=== PATIENT | male | born 1955 | race Caucasian/White ===

== ENCOUNTER 2017-05-26 13:12 | Emergency (ER) | payer MEDICARE, OTHER ==
[~2017-05-26] VITALS: Ht 180.3 cm; Wt 92.0 kg
[~2017-05-26 13:12] MED LIST: ALPR0.5T99 PO; ASPI81 PO; AUGM875 PO; CLOP75 PO; FISHOIL PO; GLUCTAB OR; LORTA5 PO; LORTS PO; METO25 PO; ROSU40 PO; SOMA350T PO; TAMS0.4C67 PO; TRIL135C PO; TYLE3 PO; VIAG50TA PO; VITA400C70 PO
[2017-05-26 13:22] VITALS: BP 141/82; PULSE 72; RESP 16; TEMP 98.2; O2SAT 97
[2017-05-26] MEDS ORDERED: SODIUM CHLORIDE 0.9% FLUSH 10 ML FLUSH IVF PRN (13:30)
[2017-05-26 13:38] VITALS: BP 141/82; PULSE 72; RESP 18; O2SAT 98
--- NOTE | 2017-05-26 14:04 | RADRPT ---
EXAM DATE/TIME: 05/26/2017 13:35 [facility] COMPARISON: No previous studies available for comparison. INDICATIONS : Patient states shortness of breath. MEDICAL HISTORY : Hypertension. SURGICAL HISTORY : None. ENCOUNTER: Initial ACUITY: 1 day PAIN SCORE: 0/10 LOCATION: Bilateral chest FINDINGS: A single AP erect portable view of the chest was obtained and demonstrates abnormal prominence in the region of the aortic knob which is indistinct in appearance. The right lung and lung bases are clear . The heart size is within normal limits. The bony thorax is unremarkable. Overlying electrocard ogra m leads and oxygen tubing are present. CONCLUSION: Abnormal indistinct prominence in the region of the aortic knob of unclear significan ce. This could represent adjacent infiltrate and/or mass. A chest CT with contrast is recommended for further evaluation. Cisco Krishnamurthy MD on May 26, 2017 at 14:00 Board Certified Radiologist. This report was verified electronically.
[2017-05-26 14:12] LABS: AUTOMATED NEUTROPHIL # 4.3 TH/MM3 (1.8-7.7); BASOPHIL % 0.7 % (0.0-2.0); EOSINOPHIL # 0.2 TH/MM3 (0-0.4); EOSINOPHIL % 3.3 % (0.0-4.0); HEMATOCRIT 41.7 % (39.0-51.0); HEMOGLOBIN 13.9 GM/DL (13.0-17.0); LYMPH % 24.2 % (9.0-44.0); LYMPHOCYTE # 1.6 TH/MM3 (1.0-4.8); MEAN CELL VOLUME 93.4 FL (80.0-100.0); MEAN CORPUSCULAR HEMOGLOBIN 31.1 PG (27.0-34.0); MEAN CORPUSCULAR HGB CONC 33.3 % (32.0-36.0); MONO % 7.6 % (0.0-8.0); MONOCYTE # 0.5 TH/MM3 (0-0.9); NEUT % 64.2 % (16.0-70.0); PLATELET COUNT 167 TH/MM3 (150-450); RED BLOOD COUNT 4.47 MIL/MM3 (4.50-5.90); RED CELL DISTRIBUTION WIDTH 13.7 % (11.6-17.2); WHITE BLOOD COUNT 6.7 TH/MM3 (4.0-11.0)
[2017-05-26 14:20] LABS: INTERNATIONAL NORMALIZED RATIO 1.1 RATIO; PROTHROMBIN TIME - PATIENT 10.7 SEC (9.8-11.6)
[2017-05-26 14:25] LABS: ALT (GPT) 41 U/L (12-78)
[2017-05-26 14:28] LABS: ALBUMIN 3.7 GM/DL (3.4-5.0); AST (GOT) 30 U/L (15-37); BICARBONATE 24.8 MEQ/L (21.0-32.0); BLOOD UREA NITROGEN 19 MG/DL (7-18); CALCIUM 8.5 MG/DL (8.5-10.1); CHLORIDE 109 MEQ/L (98-107); CREATININE 1.16 MG/DL (0.60-1.30); GLOMERULAR FILTRATION RATE 64 ML/MIN (>89); GLUCOSE,RANDOM 131 MG/DL (74-106); SODIUM (NA) 140 MEQ/L (136-145)
[2017-05-26 14:41] LABS: ALKALINE PHOSPHATASE 57 U/L (45-117); TOTAL BILIRUBIN ADULT 0.3 MG/DL (0.2-1.0); TOTAL PROTEIN 6.9 GM/DL (6.4-8.2); TROPONIN I LESS THAN 0.02 NG/ML (0.02-0.05)
[2017-05-26] MEDS ORDERED: MORPHINE SULFATE 4 MG/ML INJ IV PUSH ONE (15:15)
[2017-05-26] MEDS ORDERED: PLAV75TA29 PO (15:23)
[2017-05-26] MEDS ORDERED: MONT10TA2 PO (15:23)
[2017-05-26] MEDS ORDERED: ZOLO50TA PO (15:23)
[2017-05-26] MEDS ORDERED: MOBI15TA PO (15:23)
[2017-05-26] MEDS ORDERED: VENTAER INH (15:23)
[2017-05-26] MEDS ORDERED: VITA500012 PO (15:23)
[2017-05-26] MEDS ORDERED: ADVA250A INH (15:23)
[2017-05-26] MEDS ORDERED: OMEG1CAP53 PO (15:23)
[2017-05-26] MEDS ORDERED: ASPI81TA16 PO (15:23)
[2017-05-26] MEDS ORDERED: COEN400C2 PO (15:23)
[2017-05-26] MEDS ORDERED: SOMA350T PO (15:23)
[2017-05-26] MEDS ORDERED: METF1000 PO (15:23)
[2017-05-26] MEDS ORDERED: TAMS5CAP PO (15:23)
[2017-05-26] MEDS ORDERED: METO-338 PO (15:23)
[2017-05-26] MEDS ORDERED: NITR0.4S SL (15:23)
[2017-05-26] MEDS ORDERED: HYDR-3583 PO (15:23)
[2017-05-26] MEDS ORDERED: TOPI25 PO ×2 (15:23)
[2017-05-26] MEDS ORDERED: LOSA50TA PO (15:23)
[2017-05-26] MEDS ORDERED: XANA1TAB2 PO (15:23)
[2017-05-26] MEDS ORDERED: ROSU40 PO (15:23)
[2017-05-26] MEDS ORDERED: STOMACH MED (15:24)
[2017-05-26] MEDS ORDERED: IOHEXOL 350 MG/ML 10 ML VIAL (for RAD DIAG) IVCONTRAST ONE (16:23)
--- NOTE | 2017-05-26 16:43 | RADRPT ---
EXAM DATE/TIME: 05/26/2017 16:17 [facility] COMPARISON: CHEST SINGLE AP, May 26, 2017, 13:35. INDICATIONS : Abnormal chest x-ray. Evaluate for mass. IV CONTRAST: 50 cc Omnipaque 350 (iohexol) IV RADIATION DOSE: 14.73 CTDIvol (mGy) MEDICAL HISTORY : Cardiovascular disease. Hypertension. Diabetes mellitus type 2. SURGICAL HISTORY : None. ENCOUNTER: Initial ACUITY: 1 day PAIN SCALE: 7/10 LOCATION: chest TECHNIQUE: Volumetric scanning of the chest was performed. Using automated exposure control and adjustment of t he mA and/or kV according to patient size, radiation dose was kept as low as reasonably achievable to obtain optimal diagnostic quality images. DICOM format image data is available electronically for review and comparison. Follow-up recommendations for detected pulmonary nodules are based at a minimum on nodule size and pa tient risk factors according to Fleischner Society Guidelines. FINDINGS: LUNGS: There is no pneumothorax. There is atelectasis or scarring along the lung apices and superior left me diastinum in the region of the aortic arch and the period is non-masslike in configuration. Scarring is noted along the fissures as well. No concerning pulmonary nodule is visualized. There is mild scar ring and pleural-parenchymal change of the right posterior lung base. PLEURA: There is no pleural thickening or pleural effusion. MEDIASTINUM: The heart and great vessels demonstrate no acute abnormality. There is no mediastinal or hilar lymph adenopathy. AXILLAE: Within normal limits. No lymphadenopathy. SKELETAL: Within normal limits for patient age. MISCELLANEOUS: The visualized upper abdominal organs demonstrate no acute abnormality. There is a complex cystic les ion in the right lobe of the liver measuring up to 2 cm in diameter. There calcifications along the m argins. CONCLUSION: 1. Chronic scarring and pleural-parenchymal change around the aortic arch which accounts for the appe arance on the plain film exam. There is no tumor mass. 2. Complex cystic lesion in the right lobe of the liver represent a seroma and/or hematoma. 3. There are additional areas of scarring along the fissures and posterior right pleura. Cisco Krishnamurthy MD on May 26, 2017 at 16:34 Board Certified Radiologist. This report was verified electronically.
[2017-05-26] MEDS ORDERED: oxyCODONE/ACETAMINOPHEN 5 MG/325 MG TAB PO ONE (17:30)
[2017-05-26 17:59] VITALS: BP 136/69; PULSE 68; RESP 18; O2SAT 98
--- NOTE | 2017-05-26 18:19 | PD ---
HPI Chief Complaint: Cardiac Complaint Time Seen by Provider: 13:22 Travel History International Travel<30 days: No Contact w/Intl Traveler<30days: No Traveled to known affect area: No History of Present Illness HPI Patient is a 61-year-old male who comes in from a same day surgery Center where apparently his pulse dropped and CPR was performed. Patient says he was feeling fine prior to going in for his prostate procedure today. Per the documents sent by the facility, patient had a pulse dropped into the 40s and CPR was done to "encourage perfusion." Patient was given atropine. He is awake , alert, in no distress on arrival. His only complaint currently is of pain to his penis where the surgery was performed. He denies any chest pain, shortness of breath. Severity is mild to moderate. PFSH Past Medical History Hx Anticoagulant Therapy: Yes Cancer: No Cardiovascular Problems: Yes Diabetes: Yes (BOARDERLINE ) Patient Takes Glucophage: Yes Hepatitis: No Hiatal Hernia: No Hypertension: Yes Medical other: Yes (reflux) Respiratory: Yes (questionable asthma) Myocardial Infarction: Yes (NM X 2 ) Thyroid Disease: No Past Surgical History Cardiac Surgery: Yes (x 5 cardiac stents) Other Surgery: Yes Social History Alcohol Use: Yes (RARE ) Tobacco Use: No Substance Use: No Allergies-Medications (Allergen,Severity, Reaction): Coded Allergies: tramadol (Verified Allergy, Severe, pt said it makes him unable to pee, ) No Known Allergies (Unverified Adverse Reaction, Unknown, 05/26/17) Reported Meds & Prescriptions Reported Meds & Active Scripts Active Reported [Stomach Med] Advair Diskus Inh (Fluticasone-Salmeterol Inh) 250-50 Mcg/Blist Aer 1 Puff INH BID Rinse mouth after use. Ventolin Hfa 18 GM Inh (Albuterol Sulfate) 90 Mcg/Act Aer 2 Puff INH Q6H PRN Aspirin Adult Low Strength (Aspirin) 81 Mg Tabdr 81 Mg PO BID Lopressor (Metoprolol Tartrate) 100 Mg Tab 100 Mg PO BID Nitrostat SL (Nitroglycerin) 0.4 Mg Subl 0.4 Mg SL DIRECTED PRN 1 tablet under the tongue as needed for chest pain. Repeat every 5 minutes for a total of 3 DOSES or call 911 if NO relief. Soma (Carisoprodol) 350 Mg Tab 350 Mg PO Q8HR Plavix (Clopidogrel Bisulfate) 75 Mg Tab 75 Mg PO DAILY Crestor (Rosuvastatin Calcium) 40 Mg Tab 40 Mg PO DAILY Zoloft (Sertraline HCl) 50 Mg Tab 50 Mg PO DAILY Flomax (Tamsulosin HCl) 0.4 Mg Cap 0.4 Mg PO HS Hydrocodone-Acetamin 10-325 mg (Hydrocodone/Acetaminophen) 10 Mg-325 Mg Tablet 1 Tab PO Q6-8HR PRN Losartan (Losartan Potassium) 50 Mg Tab 50 Mg PO DAILY Metformin (Metformin HCl) 1,000 Mg Tab 1,000 Mg PO BID Mobic (Meloxicam) 15 Mg Tab 15 Mg PO DAILY Singulair (Montelukast Sodium) 10 Mg Tab 10 Mg PO HS Topamax (Topiramate) 25 Mg Tab 50 Mg PO HS Topamax (Topiramate) 25 Mg Tab 25 Mg PO DAILY IN THE AM Xanax (Alprazolam) 1 Mg Tab 1 Mg PO TID Co Q-10 (Coenzyme Q10 (Ubidecarenone)) 400 Mg Cap 400 Mg PO DAILY Ergocalciferol 50,000 Unit Cap 100,000 Units PO Q7D Lovaza (Mrxxt-4-Lfpj Ethyl Esters) 1 Gm Cap 4 Gm PO DAILY Review of Systems Except as stated in HPI: all other systems reviewed are Neg General / Constitutional: No: Fever, Chills HENT: No: Headaches, Lightheadedness Cardiovascular: No: Chest Pain or Discomfort Respiratory: No: Shortness of Breath Gastrointestinal: No: Nausea, Vomiting Musculoskeletal: No: Myalgias, Edema Skin: No Rash, No Change in Pigmentation Neurologic: No: Weakness, Dizziness Physical Exam Narrative GENERAL: Awake and alert, in no acute distress. SKIN: Focused skin assessment warm/dry. No wounds or bruising. HEAD: Atraumatic. Normocephalic. EYES: Pupils equal and round. No scleral icterus. ENT: No nasal bleeding or discharge. Mucous membranes pink and moist. NECK: Trachea midline. No JVD. CARDIOVASCULAR: Regular rate and rhythm. No murmur appreciated. RESPIRATORY: No accessory muscle use. Clear to auscultation. Breath sounds equal bilaterally. GASTROINTESTINAL: Abdomen soft, non-tender, nondistended. MUSCULOSKELETAL: No obvious deformities. No clubbing. No cyanosis. No edema. NEUROLOGICAL: Awake and alert. No obvious cranial nerve deficits. Motor grossly within normal limits. Normal speech. PSYCHIATRIC: Appropriate mood and affect; insight and judgment normal. Data Data Last Documented VS Vital Signs Date Time Temp Pulse Resp B/P (MAP) Pulse Ox O2 Delivery O2 Flow Rate FiO2 05/26/17 17:59 68 18 136/69 (91) 98 Room Air 05/26/17 13:22 98.2 Orders Orders Electrocardiogram (05/26/17 13:23) Ckmb (Isoenzyme) Profile (05/26/17 13:23) Complete Blood Count With Diff (05/26/17 13:23) Comprehensive Metabolic Panel (05/26/17 13:23) Prothrombin Time / Inr (Pt) (05/26/17 13:23) Act Partial Throm Time (Ptt) (05/26/17 13:23) Troponin I (05/26/17 13:23) Chest, Single Ap (05/26/17 13:23) Ecg Monitoring (05/26/17 13:23) Bilateral Bp Monitoring (05/26/17 13:23) Iv Access Insert/Monitor (05/26/17 13:23) Oximetry (05/26/17 13:23) Oxygen Administration (05/26/17 13:23) Sodium Chloride 0.9% Flush (Ns Flush) (05/26/17 13:30) CKMB (05/26/17 13:55) CKMB% (05/26/17 13:55) Ct Thorax/ Chest W Iv Contrast (05/26/17 ) Morphine Inj (Morphine Inj) (05/26/17 15:15) Iohexol 350 Inj (Omnipaque 350 Inj) (05/26/17 16:23) Troponin I (05/26/17 16:49) Oxycodone-Acetamin 5-325 Mg (Percocet (05/26/17 17:30) Labs Laboratory Tests Test 05/26/17 13:55 05/26/17 17:43 White Blood Count 6.7 TH/MM3 Red Blood Count 4.47 MIL/MM3 Hemoglobin 13.9 GM/DL Hematocrit 41.7 % Mean Corpuscular Volume 93.4 FL Mean Corpuscular Hemoglobin 31.1 PG Mean Corpuscular Hemoglobin Concent 33.3 % Red Cell Distribution Width 13.7 % Platelet Count 167 TH/MM3 Mean Platelet Volume 8.0 FL Neutrophils (%) (Auto) 64.2 % Lymphocytes (%) (Auto) 24.2 % Monocytes (%) (Auto) 7.6 % Eosinophils (%) (Auto) 3.3 % Basophils (%) (Auto) 0.7 % Neutrophils # (Auto) 4.3 TH/MM3 Lymphocytes # (Auto) 1.6 TH/MM3 Monocytes # (Auto) 0.5 TH/MM3 Eosinophils # (Auto) 0.2 TH/MM3 Basophils # (Auto) 0.0 TH/MM3 CBC Comment DIFF FINAL Differential Comment Prothrombin Time 10.7 SEC Prothromb Time International Ratio 1.1 RATIO Activated Partial Thromboplast Time 24.0 SEC Blood Urea Nitrogen 19 MG/DL Creatinine 1.16 MG/DL Random Glucose 131 MG/DL Total Protein 6.9 GM/DL Albumin 3.7 GM/DL Calcium Level 8.5 MG/DL Alkaline Phosphatase 57 U/L Aspartate Amino Transf (AST/SGOT) 30 U/L Alanine Aminotransferase (ALT/SGPT) 41 U/L Total Bilirubin 0.3 MG/DL Sodium Level 140 MEQ/L Potassium Level 5.3 MEQ/L Chloride Level 109 MEQ/L Carbon Dioxide Level 24.8 MEQ/L Anion Gap 6 MEQ/L Estimat Glomerular Filtration Rate 64 ML/MIN Total Creatine Kinase 118 U/L Creatine Kinase MB 2.5 NG/ML Troponin I LESS THAN 0.02 NG/ML LESS THAN 0.02 NG/ML MDM Medical Decision Making Medical Screen Exam Complete: Yes Emergency Medical Condition: Yes Differential Diagnosis Anesthesia reaction versus ACS (unlikely) versus dehydration versus electrolyte abnormality Narrative Course Patient is a 61-year-old male who comes in after a procedure today when he experienced bradycardia. Currently he has no complaints other than pain from the procedure. IV established, labs sent. Labs show no acute abnormalities, troponin is negative. Chest x-ray showed a concern for possible mass, CT of the chest performed shows atelectasis, no other acute abnormalities. Patient given pain medicine. Repeat troponin is negative. I believe, patient had a reaction to anesthesia, and that his heart never actually stopped. I discussed with the patient in observation stay, but he would like to go home. I believe this is reasonable. The is also comfortable with this plan. Advised to return any time for any worsening symptoms. Advised follow-up with his damper maker. Diagnosis Primary Impression: Anesthesia complication Qualified Codes: T41.45XA - Adverse effect of unspecified anesthetic, initial encounter Patient Instructions: Bradycardia (ED), General Instructions Additional Instructions: Follow-up with your doctors. Return any time for any worsening symptoms. Disposition: 01 DISCHARGE HOME Condition: Stable Carolin Pickering MD May 26, 2017 18:19
--- NOTE | 2017-05-27 00:36 | EKG ---
Date Performed: 05/26/2017 Time Performed: 13:24:30 PTAGE: 61 years EKG: Sinus rhythm NORMAL ECG PREVIOUS TRACING : 08/01/2010 14.22 DOCTOR: Sue Scruggs Interpretating Date/Time 05/27/2017 00:22:42
== END 2017-05-26 19:38 | disposition home or self-care (01) ==
LOC: NEPE 13:12
DX: R00.1 Bradycardia, unspecified (principal); T41.45XA Adverse effect of unspecified anesthetic, initial encounter; Y92.234 Operating room of hospital as the place of occurrence of the external cause
CPT/HCPCS: 71045; 71260; 80053; 82550; 82552; 84484; 85025; 85610; 85730; 93005; 96374; 99285; J2270; Q9967